=== PATIENT | male | born 1945 | race Caucasian/White ===

== ENCOUNTER 2017-08-22 18:22 | Inpatient (IN) | payer OTHER, MEDICARE ==
[~2017-08-22] VITALS: Ht 182.9 cm; Wt 132.3 kg
[~2017-08-22 18:22] MED LIST: ASPI-845 PO; ATOR40TA PO; DIGO125T97 PO; DOCU100C41 PO; FURO-149 PO; GLIM2TAB2 PO; INSU100C10 SQ; LANTUS SQ; LOSA50TA3 PO; METF750T PO; METO-411 PO; NITR0.4T48 SL; POLY17PO10 PO; SAXA5TAB PO; SPIR25TA3 PO
[2017-08-22] MEDS ORDERED: levoFLOXACIN-Levaquin 750MG/D5 150 ML IV ONE (18:30)
[2017-08-22] MEDS ORDERED: normal saline 1000ML IV soln IV ONE (18:30)
[2017-08-22] MEDS ORDERED: CefTRIAXone 2gm/NS 100ml IVPB 100 ML IV ONE (18:30)
[2017-08-22 18:46] LABS: BASOPHILS # (AUTO) 0.1 X10'3 (0-0.2); BASOPHILS % (AUTO) 0.3 % (0-1); EOSINOPHILS # (AUTO) 0.2 X10'3 (0-0.9); HEMATOCRIT 40.1 % (42.0-52.0); LYMPHOCYTES # (AUTO) 4.6 X10'3 (1.1-4.8); LYMPHOCYTES % (AUTO) 23.4 % (21-51); MEAN CORPUSCULAR HEMOGLOBIN 27.5 PG (27.0-31.0); MEAN CORPUSCULAR HGB CONC 32.4 % (33.0-36.5); MEAN CORPUSCULAR VOLUME 84.8 FL (78-98); MEAN PLATELET VOLUME 9.8 FL (7.4-10.4); MONOCYTES % (AUTO) 5.1 % (2-12); NEUTROPHILS # (AUTO) 13.9 X10'3 (1.8-7.7); NEUTROPHILS % (AUTO) 70.2 % (42-75); PLATELET COUNT 144 X10'3 (140-440); RED BLOOD COUNT 4.74 X10'6 (4.70-6.10); RED CELL DISTRIBUTION WIDTH 18.6 % (11.5-14.5); WHITE BLOOD COUNT 19.8 X10'3 (4.5-11.0)
[2017-08-22] MEDS ORDERED: CefTRIAXone/dextrose 2GM bag 50 ML IV ONE (19:05)
[2017-08-22] MEDS ORDERED: midazolam 100mg in NS 100ml 100 ML IV ONE (19:10)
[2017-08-22 19:12] LABS: ALANINE AMINOTRANSFERASE 44 U/L (12-78); ALBUMIN 2.2 G/DL (3.4-5.0); ALBUMIN/GLOBULIN RATIO 0.6 (1.1-1.5); ALKALINE PHOSPHATASE 260 IU/L (46-116); ANION GAP 12 (8-16); ASPARTATE AMINO TRANSFERASE 47 U/L (10-37); BILIRUBIN,TOTAL 0.6 MG/DL (0.1-1.0); BLOOD UREA NITROGEN 40 MG/DL (7-18); BUN/CREATININE RATIO 19.6 (5.4-32.0); CHLORIDE 100 MMOL/L (99-107); CREATININE 2.04 MG/DL (0.60-1.10); GLUCOSE 308 MG/DL (70-104); POTASSIUM 4.9 MMOL/L (3.5-5.1); SODIUM 138 MMOL/L (135-145); TOTAL CARBON DIOXIDE 25.7 MMOL/L (24-32); TOTAL PROTEIN 6.2 G/DL (6.4-8.2); eGFR 32 ML/MIN
[2017-08-22 19:14] LABS: MAGNESIUM 2.1 MG/DL (1.5-2.4)
[2017-08-22 19:17] LABS: PARTIAL THROMBOPLASTIN TIME 33 SECONDS (22-32); PROTHROMBIN TIME 20.4 SECONDS (9.0-12.0)
[2017-08-22 19:26] LABS: ABG BASE EXCESS -6.9 mmol/L (-2.0-3.0); ABG HCO3 19.1 mmol/L (22.0-26.0); ABG OXYGEN SATURATION 91.5 % (95-98); ABG PCO2 (T) 39.3 mmHg (35.0-48.0); ABG PH (T) 7.302 (7.350-7.450); ABG PO2 (T) 69.6 mmHg (83-108); FCOHb 0.6 % (0.5-1.5); FMetHb 0.3 % (0.3-1.12); FO2Hb 90.7 % (94-100); MINUTE VOLUME 11 L/min; PATIENT TEMPERATURE 36.5; PEEP 5 cm H2O; RESPIRATORY RATE 18 b/min; RESPIRATORY RATE (OBSERVED) 24 b/min; TIDAL VOLUME 400 mL; TOTAL HEMOGLOBIN 11.6 G/dl (14.0-18.0)
[2017-08-22] MEDS ORDERED: potassium Cl 40MEQ/250ML bag 250 ML IV PRN (20:35)
[2017-08-22] MEDS ORDERED: potassium Cl 20 mEq SR tablet PO PRN ×2 (20:35)
[2017-08-22] MEDS ORDERED: CISatracurium **Bolus** 2 mg/ml inj IV PRN (20:35)
[2017-08-22] MEDS ORDERED: potassium Cl 40MEQ/250ML bag 250 ML IV SCH (20:35)
[2017-08-22] MEDS: K, MAG and/or Phos replacement - Verify level? MC SCH (20:35)
[2017-08-22] MEDS ORDERED: midazolam 100mg in NS 100ml 100 ML IV PRN (20:46)
[2017-08-22 20:48] LABS: COLOR,URINE Yellow (Yellow); GLUCOSE, URINE 100 mg/dl (Neg); KETONES,URINE Negative (Neg); LEUKOCYTE ESTERASE ,URINE Trace (Neg); NITRITES, URINE Negative (Neg); OCCULT BLOOD,URINE Moderate (Neg); PROTEIN,URINE 300 mg/dl (Neg); UROBILINOGEN,URINE 0.2 E.U/dL (0.2-1.0)
[2017-08-22] MEDS ORDERED: ipratropium/albuterol 3ml nebule NEB PRN (20:50)
[2017-08-22] MEDS ORDERED: acetaminophen 325mg tablet PO PRN ×2 (20:50)
[2017-08-22] MEDS ORDERED: magnesium hydroxide 30ml (MOM) UD suspension PO PRN (20:50)
[2017-08-22] MEDS ORDERED: ondansetron/PF 4mg/2ml inj IV PRN (20:50)
[2017-08-22 20:52] LABS: UA COLLECTION TYPE FOLEY CATH
[2017-08-22 20:53] LABS: CLARITY,URINE CLOUDY (Clear)
[2017-08-22 21:05] LABS: AMORPHOUS URATES 2+; BACTERIA,URINE FEW /HPF (Neg); MUCUS STRANDS NONE SEEN /LPF (Neg); SQUAMOUS EPITHELIAL CELL,UR FEW /LPF (FEW)
[2017-08-22 21:11] LABS: YEAST MODERATE /HPF (NEGATIVE)
[2017-08-22 21:30] LABS: ABG HCO3 22.3 mmol/L (22.0-26.0); ABG OXYGEN SATURATION 90.5 % (95-98); ABG PH (T) 7.379 (7.350-7.450); ABG PO2 (T) 56.5 mmHg (83-108); FCOHb 0.5 % (0.5-1.5); MINUTE VOLUME 8 L/min; PATIENT TEMPERATURE 35.2; PEEP 10 cm H2O; RESPIRATORY RATE 18 b/min; RESPIRATORY RATE (OBSERVED) 18 b/min; TIDAL VOLUME 400 mL; TOTAL HEMOGLOBIN 12.1 G/dl (14.0-18.0)
[2017-08-22] MEDS: normal saline 1000ml 1,000 ML IV SCH (21:39)
[2017-08-22] MEDS ORDERED: normal saline 1000ml 1,000 ML IV ONE (22:55)
[2017-08-22 23:00] VITALS: BP 119/83
[2017-08-23] VITALS (24 sets, daily range): BP systolic 124–166; BP diastolic 79–106
[2017-08-23] MEDS ORDERED: mineral oil/petrolatum ophthal oint OP SCH
[2017-08-23] MEDS ORDERED: meperidine/PF 50mg/ml syringe IV SCH
[2017-08-23 01:11] LABS: OXYGEN SATURATION (MIXED VEN) 53.2 % (60-80)
[2017-08-23] MEDS ORDERED: MESSAGE TO PHARMACY PO ONE (02:05)
[2017-08-23] MEDS ORDERED: glucagon, human recombinant 1mg kit SUBCUT PRN (02:05)
[2017-08-23] MEDS ORDERED: dextrose 50%-water 50ml dispensing syringe IV PRN (02:05)
[2017-08-23] MEDS ORDERED: dextrose ORAL solution 15 GM/59 ML bottle PO PRN ×2 (02:05)
[2017-08-23] MEDS: CISatracurium besylate inj. 200 MG in normal saline 250ml IV soln 180 ML IV PRN ×2 (02:07→16:55)
[2017-08-23] MEDS: piperacillin/tazo 3.375gm/50ml 50 ML IV SCH ×3 (02:28→16:54)
[2017-08-23 02:29] LABS: HEMATOCRIT 37.3 % (42.0-52.0); HEMOGLOBIN 12.2 g/dl (14.0-17.9); MEAN CORPUSCULAR HEMOGLOBIN 27.5 PG (27.0-31.0); MEAN CORPUSCULAR HGB CONC 32.8 % (33.0-36.5); PLATELET COUNT 138 X10'3 (140-440); RED BLOOD COUNT 4.44 X10'6 (4.70-6.10); RED CELL DISTRIBUTION WIDTH 18.8 % (11.5-14.5); WHITE BLOOD COUNT 21.5 X10'3 (4.5-11.0)
[2017-08-23 02:30] LABS: BASOPHILS % (AUTO) 0 % (0-1); EOSINOPHILS # (AUTO) 0.4 X10'3 (0-0.9); EOSINOPHILS % (AUTO) 1.9 % (0-6); LYMPHOCYTES # (AUTO) 0.6 X10'3 (1.1-4.8); LYMPHOCYTES % (AUTO) 2.8 % (21-51); MEAN PLATELET VOLUME 9.7 FL (7.4-10.4); MONOCYTES % (AUTO) 4.6 % (2-12); NEUTROPHILS # (AUTO) 19.5 X10'3 (1.8-7.7); NEUTROPHILS % (AUTO) 90.7 % (42-75)
[2017-08-23] MEDS: FENTANYL-0.9 % NACL/PF 100 ML IV PRN ×2 (02:31→17:19)
[2017-08-23] MEDS ORDERED: insulin regular, human vial - multi-dose ONE (02:36)
[2017-08-23 02:40] LABS: INR 2.1 INR; PARTIAL THROMBOPLASTIN TIME 33 SECONDS (22-32); PROTHROMBIN TIME 21.5 SECONDS (9.0-12.0)
[2017-08-23] MEDS: insulin Lispro (HumaLOG) vial - multi-dose SQ SCH ×5 (02:56→21:01)
[2017-08-23 03:01] LABS: ALANINE AMINOTRANSFERASE 43 U/L (12-78); ALBUMIN/GLOBULIN RATIO 0.6 (1.1-1.5); ALKALINE PHOSPHATASE 219 IU/L (46-116); ANION GAP 8 (8-16); ASPARTATE AMINO TRANSFERASE 45 U/L (10-37); BILIRUBIN,TOTAL 0.6 MG/DL (0.1-1.0); BLOOD UREA NITROGEN 41 MG/DL (7-18); BUN/CREATININE RATIO 20.7 (5.4-32.0); CALCIUM 7.9 MG/DL (8.5-10.1); CHLORIDE 103 MMOL/L (99-107); CREATINE KINASE 143 U/L (39-308); CREATINE KINASE MB 8.6 ng/ml (0.3-3.6); CREATININE 1.98 MG/DL (0.60-1.10); GLUCOSE 290 MG/DL (70-104); PHOSPHORUS 4.7 MG/DL (2.3-4.5); POTASSIUM 4.7 MMOL/L (3.5-5.1); SODIUM 137 MMOL/L (135-145); TOTAL PROTEIN 5.6 G/DL (6.4-8.2); eGFR 33 ML/MIN
[2017-08-23 03:04] LABS: TROPONIN I 0.51 NG/ML (0.0-0.05)
[2017-08-23 05:26] LABS: OXYGEN SATURATION (MIXED VEN) 77.2 % (60-80); PO2 MIXED VENOUS (TEMP COR) 33.1 mmHg (35-46)
[2017-08-23 05:30] LABS: ABG BASE EXCESS -1.4 mmol/L (-2.0-3.0); ABG HCO3 23.4 mmol/L (22.0-26.0); ABG OXYGEN SATURATION 99.6 % (95-98); ABG PO2 (T) 370.4 mmHg (83-108); FMetHb 0.2 % (0.3-1.12); FO2Hb 99.4 % (94-100); MINUTE VOLUME 8 L/min; PATIENT TEMPERATURE 32.7; PEEP 12 cm H2O; RESPIRATORY RATE 18 b/min; RESPIRATORY RATE (OBSERVED) 18 b/min; TIDAL VOLUME 400 mL; TOTAL HEMOGLOBIN 13.4 G/dl (14.0-18.0)
[2017-08-23] MEDS ORDERED: pantoprazole 40 MG vial IV SCH (08:00)
[2017-08-23] MEDS: K, MAG and/or Phos replacement - Verify level? MC SCH (08:00)
[2017-08-23] MEDS: normal saline 1000ml 1,000 ML IV SCH ×2 (08:44→16:54)
[2017-08-23 08:56] LABS: ALBUMIN 1.9 G/DL (3.4-5.0); ANION GAP 9 (8-16); BLOOD UREA NITROGEN 42 MG/DL (7-18); BUN/CREATININE RATIO 23.2 (5.4-32.0); CALCIUM 7.9 MG/DL (8.5-10.1); CHLORIDE 105 MMOL/L (99-107); CREATININE 1.81 MG/DL (0.60-1.10); GLUCOSE 299 MG/DL (70-104); MAGNESIUM 1.6 MG/DL (1.5-2.4); POTASSIUM 4.3 MMOL/L (3.5-5.1); SODIUM 140 MMOL/L (135-145); TOTAL CARBON DIOXIDE 25.6 MMOL/L (24-32); eGFR 37 ML/MIN
[2017-08-23] MEDS ORDERED: FENTANYL-0.9 % NACL/PF 100 ML IV PRN (11:04)
[2017-08-23] MEDS ORDERED: midazolam 2 mg/2 ml injection IV ONE (11:05)
[2017-08-23] MEDS: midazolam 100mg in NS 100ml 100 ML IV PRN ×2 (11:25→11:53)
[2017-08-23] MEDS: famotidine/PF 10 mg/ml inj IV SCH ×2 (11:53→20:50)
[2017-08-23 12:03] LABS: CLARITY,URINE Clear (Clear); COLOR,URINE Yellow (Yellow); GLUCOSE, URINE >=1000 mg/dl (Neg); KETONES,URINE Negative (Neg); LEUKOCYTE ESTERASE ,URINE Small (Neg); NITRITES, URINE Negative (Neg); OCCULT BLOOD,URINE Moderate (Neg); PROTEIN,URINE 100 mg/dl (Neg); UROBILINOGEN,URINE 0.2 E.U/dL (0.2-1.0)
[2017-08-23 12:10] LABS: CREATININE,URINE RANDOM 31.7 MG/DL
[2017-08-23 12:19] LABS: UA COLLECTION TYPE FOLEY CATH
[2017-08-23 12:24] LABS: SQUAMOUS EPITHELIAL CELL,UR FEW /LPF (FEW)
[2017-08-23 12:25] LABS: MUCUS STRANDS FEW /LPF (Neg)
[2017-08-23 12:27] LABS: YEAST FEW /HPF (NEGATIVE)
[2017-08-23 12:28] LABS: COARSE GRANULAR CAST 0-3 /LPF (NEGATIVE)
[2017-08-23 12:34] LABS: BACTERIA,URINE FEW /HPF (Neg)
[2017-08-23 12:35] LABS: HYALINE CASTS 0-3 /LPF (NEGATIVE)
[2017-08-23 13:23] LABS: UA EOSINOPHILS NO EOS /HPF
[2017-08-23 13:49] LABS: ALBUMIN 1.8 G/DL (3.4-5.0); ANION GAP 8 (8-16); BLOOD UREA NITROGEN 42 MG/DL (7-18); BUN/CREATININE RATIO 22.5 (5.4-32.0); CALCIUM 7.7 MG/DL (8.5-10.1); CHLORIDE 104 MMOL/L (99-107); CKMB RELATIVE INDEX 8.9 RATIO (0-2.5); CREATINE KINASE 118 U/L (39-308); CREATINE KINASE MB 10.5 ng/ml (0.3-3.6); CREATININE 1.87 MG/DL (0.60-1.10); GLUCOSE 270 MG/DL (70-104); MAGNESIUM 1.5 MG/DL (1.5-2.4); POTASSIUM 4.1 MMOL/L (3.5-5.1); SODIUM 138 MMOL/L (135-145); TOTAL CARBON DIOXIDE 25.7 MMOL/L (24-32); eGFR 36 ML/MIN
[2017-08-23 13:52] LABS: TROPONIN I 0.72 NG/ML (0.0-0.05)
[2017-08-23 15:56] LABS: ABG BASE EXCESS -0.7 mmol/L (-2.0-3.0); ABG HCO3 24.3 mmol/L (22.0-26.0); ABG OXYGEN SATURATION 99.1 % (95-98); ABG PCO2 (T) 33.5 mmHg (35.0-48.0); ABG PH (T) 7.458 (7.350-7.450); ABG PO2 (T) 182.1 mmHg (83-108); FCOHb 0.3 % (0.5-1.5); FMetHb 0.1 % (0.3-1.12); FO2Hb 98.7 % (94-100); MINUTE VOLUME 7 L/min; PATIENT TEMPERATURE 32.1; PEEP 5 cm H2O; RESPIRATORY RATE 18 b/min; RESPIRATORY RATE (OBSERVED) 18 b/min; TIDAL VOLUME 400 mL; TOTAL HEMOGLOBIN 12.3 G/dl (14.0-18.0)
[2017-08-23] MEDS: heparin, porcine 5000 units/ml vial SQ SCH (20:50)
[2017-08-23] MEDS: Insulin Detemir pen SQ SCH (20:53)
[2017-08-23 21:20] LABS: ABG BASE EXCESS -0.7 mmol/L (-2.0-3.0); ABG HCO3 23.4 mmol/L (22.0-26.0); ABG OXYGEN SATURATION 98.9 % (95-98); ABG PH (T) 7.491 (7.350-7.450); ABG PO2 (T) 138.3 mmHg (83-108); FCOHb 0.3 % (0.5-1.5); FMetHb 0.1 % (0.3-1.12); FO2Hb 98.5 % (94-100); MINUTE VOLUME 8 L/min; PATIENT TEMPERATURE 32.3; PEEP 12 cm H2O; RESPIRATORY RATE 18 b/min; RESPIRATORY RATE (OBSERVED) 18 b/min; TIDAL VOLUME 400 mL; TOTAL HEMOGLOBIN 12.5 G/dl (14.0-18.0)
[2017-08-23 21:20] LABS: ALBUMIN 1.8 G/DL (3.4-5.0); ANION GAP 8 (8-16); BLOOD UREA NITROGEN 43 MG/DL (7-18); BUN/CREATININE RATIO 22.8 (5.4-32.0); CALCIUM 7.8 MG/DL (8.5-10.1); CHLORIDE 106 MMOL/L (99-107); CREATINE KINASE 94 U/L (39-308); CREATINE KINASE MB 10.7 ng/ml (0.3-3.6); CREATININE 1.89 MG/DL (0.60-1.10); GLUCOSE 226 MG/DL (70-104); MAGNESIUM 1.6 MG/DL (1.5-2.4); SODIUM 140 MMOL/L (135-145); TOTAL CARBON DIOXIDE 26.1 MMOL/L (24-32); eGFR 35 ML/MIN
[2017-08-23 21:25] LABS: TROPONIN I 0.58 NG/ML (0.0-0.05)
[2017-08-24] VITALS (24 sets, daily range): BP systolic 80–141; BP diastolic 50–90
[2017-08-24] MEDS: piperacillin/tazo 3.375gm/50ml 50 ML IV SCH ×3 (00:48→16:01)
[2017-08-24] MEDS: mineral oil/petrolatum ophthal oint EACHEYE SCH ×4 (02:08→20:16)
[2017-08-24] MEDS: insulin Lispro (HumaLOG) vial - multi-dose SQ SCH (02:15)
[2017-08-24] MEDS: normal saline 1000ml 1,000 ML IV SCH ×2 (02:35→14:24)
[2017-08-24 04:05] LABS: BASOPHILS % (AUTO) 0.1 % (0-1); EOSINOPHILS # (AUTO) 0.1 X10'3 (0-0.9); EOSINOPHILS % (AUTO) 0.6 % (0-6); HEMOGLOBIN 11.8 g/dl (14.0-17.9); LYMPHOCYTES # (AUTO) 0.7 X10'3 (1.1-4.8); LYMPHOCYTES % (AUTO) 5.1 % (21-51); MEAN CORPUSCULAR HEMOGLOBIN 27.1 PG (27.0-31.0); MEAN CORPUSCULAR HGB CONC 32.7 % (33.0-36.5); MEAN PLATELET VOLUME 9.4 FL (7.4-10.4); MONOCYTES # (AUTO) 0.7 X10'3 (0-0.9); MONOCYTES % (AUTO) 5.3 % (2-12); NEUTROPHILS # (AUTO) 11.6 X10'3 (1.8-7.7); NEUTROPHILS % (AUTO) 88.9 % (42-75); PLATELET COUNT 113 X10'3 (140-440); RED BLOOD COUNT 4.34 X10'6 (4.70-6.10)
[2017-08-24 04:25] LABS: INR 2.9 INR; PARTIAL THROMBOPLASTIN TIME 39 SECONDS (22-32); PROTHROMBIN TIME 29.2 SECONDS (9.0-12.0)
[2017-08-24 04:30] LABS: ALANINE AMINOTRANSFERASE 39 U/L (12-78); ALBUMIN 1.8 G/DL (3.4-5.0); ALBUMIN/GLOBULIN RATIO 0.5 (1.1-1.5); ALKALINE PHOSPHATASE 175 IU/L (46-116); ANION GAP 10 (8-16); ASPARTATE AMINO TRANSFERASE 36 U/L (10-37); BILIRUBIN,TOTAL 0.5 MG/DL (0.1-1.0); BLOOD UREA NITROGEN 44 MG/DL (7-18); BUN/CREATININE RATIO 22.8 (5.4-32.0); CALCIUM 7.8 MG/DL (8.5-10.1); CHLORIDE 106 MMOL/L (99-107); CREATINE KINASE 76 U/L (39-308); CREATINE KINASE MB 9.7 ng/ml (0.3-3.6); CREATININE 1.93 MG/DL (0.60-1.10); GLUCOSE 172 MG/DL (70-104); PHOSPHORUS 4.5 MG/DL (2.3-4.5); POTASSIUM 3.7 MMOL/L (3.5-5.1); SODIUM 140 MMOL/L (135-145); TOTAL CARBON DIOXIDE 24.5 MMOL/L (24-32); TOTAL PROTEIN 5.1 G/DL (6.4-8.2); eGFR 34 ML/MIN
[2017-08-24 04:33] LABS: TROPONIN I 0.45 NG/ML (0.0-0.05)
[2017-08-24 04:41] LABS: ABG BASE EXCESS -1.8 mmol/L (-2.0-3.0); ABG HCO3 21.8 mmol/L (22.0-26.0); ABG OXYGEN SATURATION 97.7 % (95-98); ABG PCO2 (T) 27.8 mmHg (35.0-48.0); ABG PH (T) 7.494 (7.350-7.450); FCOHb 0.2 % (0.5-1.5); FMetHb 0.3 % (0.3-1.12); FO2Hb 97.2 % (94-100); MINUTE VOLUME 7 L/min; PATIENT TEMPERATURE 32.9; PEEP 5 cm H2O; RESPIRATORY RATE 16 b/min; RESPIRATORY RATE (OBSERVED) 16 b/min; TIDAL VOLUME 400 mL; TOTAL HEMOGLOBIN 12.5 G/dl (14.0-18.0)
[2017-08-24] MEDS: K, MAG and/or Phos replacement - Verify level? MC SCH (08:00)
[2017-08-24] MEDS: heparin, porcine 5000 units/ml vial SQ SCH ×2 (09:00→20:17)
[2017-08-24] MEDS: famotidine/PF 10 mg/ml inj IV SCH ×2 (09:02→20:17)
[2017-08-24] MEDS: midazolam 100mg in NS 100ml 100 ML IV PRN (10:24)
[2017-08-24] MEDS: FENTANYL-0.9 % NACL/PF 100 ML IV PRN (13:42)
[2017-08-24] MEDS ORDERED: insulin regular, human vial - multi-dose SQ SCH (15:46)
[2017-08-24] MEDS ORDERED: NORepinephrine 8mg/ 250ml NS 250 ML IV SCH (16:15)
[2017-08-24] MEDS: lactobacillus rhamnosus 10,000 MMU CELLS/CAPSULE PO SCH (17:02)
[2017-08-24] MEDS ORDERED: vasopressin inj. 60 UNIT in normal saline 100ml IV soln 97 ML IV SCH (19:45)
[2017-08-24] MEDS ORDERED: phentolamine (Regitine) 5mg inj IM ONE (20:50)
[2017-08-24] MEDS: Insulin Detemir pen SQ SCH (21:00)
[2017-08-24] MEDS ORDERED: phentolamine (Regitine) 5mg inj ONE (21:13)
[2017-08-24] MEDS: dextrose 50%-water 50ml dispensing syringe IV PRN (22:25)
[2017-08-25] VITALS (11 sets, daily range): BP systolic 40–125; BP diastolic 30–68
[2017-08-25] MEDS: piperacillin/tazo 3.375gm/50ml 50 ML IV SCH ×2 (00:56→07:59)
[2017-08-25] MEDS: normal saline 1000ml 1,000 ML IV SCH ×2 (00:56→08:46)
[2017-08-25] MEDS: dextrose 50%-water 50ml dispensing syringe IV PRN (01:55)
[2017-08-25 02:48] LABS: BASOPHILS % (AUTO) 0.2 % (0-1); EOSINOPHILS # (AUTO) 0.3 X10'3 (0-0.9); EOSINOPHILS % (AUTO) 1.8 % (0-6); HEMATOCRIT 37.4 % (42.0-52.0); LYMPHOCYTES % (AUTO) 6.1 % (21-51); MEAN CORPUSCULAR HEMOGLOBIN 26.8 PG (27.0-31.0); MEAN CORPUSCULAR HGB CONC 32.2 % (33.0-36.5); MEAN CORPUSCULAR VOLUME 83.3 FL (78-98); MEAN PLATELET VOLUME 10.3 FL (7.4-10.4); MONOCYTES # (AUTO) 1.1 X10'3 (0-0.9); MONOCYTES % (AUTO) 6.4 % (2-12); NEUTROPHILS # (AUTO) 14.4 X10'3 (1.8-7.7); NEUTROPHILS % (AUTO) 85.5 % (42-75); PLATELET COUNT 145 X10'3 (140-440); RED BLOOD COUNT 4.49 X10'6 (4.70-6.10); RED CELL DISTRIBUTION WIDTH 18.9 % (11.5-14.5); WHITE BLOOD COUNT 16.8 X10'3 (4.5-11.0)
[2017-08-25 03:02] LABS: PARTIAL THROMBOPLASTIN TIME 40 SECONDS (22-32); PROTHROMBIN TIME 49.4 SECONDS (9.0-12.0)
[2017-08-25 03:07] LABS: ALANINE AMINOTRANSFERASE 36 U/L (12-78); ALBUMIN 1.8 G/DL (3.4-5.0); ALBUMIN/GLOBULIN RATIO 0.5 (1.1-1.5); ALKALINE PHOSPHATASE 161 IU/L (46-116); ANION GAP 10 (8-16); ASPARTATE AMINO TRANSFERASE 36 U/L (10-37); BILIRUBIN,TOTAL 0.4 MG/DL (0.1-1.0); BLOOD UREA NITROGEN 44 MG/DL (7-18); BUN/CREATININE RATIO 17.3 (5.4-32.0); CALCIUM 7.6 MG/DL (8.5-10.1); CHLORIDE 106 MMOL/L (99-107); CREATININE 2.54 MG/DL (0.60-1.10); GLUCOSE 112 MG/DL (70-104); INR 5.1 INR; PHOSPHORUS 5.5 MG/DL (2.3-4.5); POTASSIUM 4.2 MMOL/L (3.5-5.1); PREALBUMIN 13.4 MG/DL (19-36); SODIUM 141 MMOL/L (135-145); TOTAL CARBON DIOXIDE 24.8 MMOL/L (24-32); TOTAL PROTEIN 5.2 G/DL (6.4-8.2); eGFR 25 ML/MIN
[2017-08-25] MEDS: mineral oil/petrolatum ophthal oint EACHEYE SCH ×2 (03:39→07:59)
[2017-08-25 04:16] LABS: ABG BASE EXCESS -4.3 mmol/L (-2.0-3.0); ABG HCO3 21.3 mmol/L (22.0-26.0); ABG OXYGEN SATURATION 99.1 % (95-98); ABG PCO2 (T) 42.1 mmHg (35.0-48.0); ABG PH (T) 7.325 (7.350-7.450); ABG PO2 (T) 179.7 mmHg (83-108); FCOHb 0.1 % (0.5-1.5); FMetHb 0.1 % (0.3-1.12); FO2Hb 98.9 % (94-100); MINUTE VOLUME 7 L/min; PATIENT TEMPERATURE 37.5; PEEP 5 cm H2O; RESPIRATORY RATE 16 b/min; RESPIRATORY RATE (OBSERVED) 16 b/min; TIDAL VOLUME 450 mL; TOTAL HEMOGLOBIN 12.9 G/dl (14.0-18.0)
[2017-08-25] MEDS: midazolam 100mg in NS 100ml 100 ML IV PRN (06:01)
[2017-08-25] MEDS: famotidine/PF 10 mg/ml inj IV SCH (07:59)
[2017-08-25] MEDS: lactobacillus rhamnosus 10,000 MMU CELLS/CAPSULE PO SCH (07:59)
[2017-08-25] MEDS: heparin, porcine 5000 units/ml vial SQ SCH (08:00)
[2017-08-25] MEDS: K, MAG and/or Phos replacement - Verify level? MC SCH (08:00)
[2017-08-25 08:10] LABS: ABG BASE EXCESS -9.6 mmol/L (-2.0-3.0); ABG HCO3 16.9 mmol/L (22.0-26.0); ABG OXYGEN SATURATION 94.5 % (95-98); ABG PCO2 (T) 40.2 mmHg (35.0-48.0); ABG PH (T) 7.245 (7.350-7.450); ABG PO2 (T) 87.9 mmHg (83-108); FCOHb 0.3 % (0.5-1.5); FMetHb 0.3 % (0.3-1.12); FO2Hb 93.9 % (94-100); MINUTE VOLUME 6 L/min; PATIENT TEMPERATURE 37.5; PEEP 5 cm H2O; RESPIRATORY RATE 16 b/min; RESPIRATORY RATE (OBSERVED) 16 b/min; TIDAL VOLUME 400 mL
[2017-08-25] MEDS ORDERED: NORepinephrine 8mg/ 250ml NS 250 ML IV SCH (16:15)
== END 2017-08-25 10:40 | disposition expired | DRG 871 ==
LOC: ER 18:22 → ED HOLD 20:54 → ICU 2S 23:53
PROVIDERS: ADMIT Internal Medicine Critical Care Medicine; ATTEND Internal Medicine Critical Care Medicine
PROC: 5A1945Z Respiratory Ventilation, 24-96 Consecutive Hours (ICD-10-PCS; principal; 2017-08-22)
PROC: 0BH17EZ Insertion of Endotracheal Airway into Trachea, Via Natural or Artificial Opening (ICD-10-PCS; 2017-08-22)
PROC: 02HV33Z Insertion of Infusion Device into Superior Vena Cava, Percutaneous Approach (ICD-10-PCS; 2017-08-22)
PROC: 04HY32Z Insertion of Monitoring Device into Lower Artery, Percutaneous Approach (ICD-10-PCS; 2017-08-22)
DX: A41.9 Sepsis, unspecified organism (principal); J69.0 Pneumonitis due to inhalation of food and vomit; I46.9 Cardiac arrest, cause unspecified; N17.9 Acute kidney failure, unspecified; T68.XXXA Hypothermia, initial encounter; E11.42 Type 2 diabetes mellitus with diabetic polyneuropathy; I48.91 Unspecified atrial fibrillation; I50.9 Heart failure, unspecified; I25.10 Atherosclerotic heart disease of native coronary artery without angina pectoris; Z66 Do not resuscitate; Z95.1 Presence of aortocoronary bypass graft; Z79.4 Long term (current) use of insulin; Z79.899 Other long term (current) drug therapy; Z79.82 Long term (current) use of aspirin
CPT/HCPCS: 36415; 36556; 36600; 71010; 71045; 80048; 80053; 80162; 81001; 82550; 82553; 82570; 82803; 82810; 82948; 83036; 83605; 83735; 83880; 84100; 84134; 84145; 84300; 84484; 85018; 85025; 85610; 85730; 87040; 87070; 87077; 87088; 87207; 93306; 94002; 94003; 94760; 96365; 96366; 96368; 99291; A6209; A6212; A6213; A6446; C1751; C1758; C9113; J0696; J1644; J1815; J1956; J2175; J2250; J2543; J2760; J3490; J7030